=== PATIENT | female | born 1985 | race American Indian/Alaskan Native ===

== ENCOUNTER 2020-12-15 22:06 | Emergency (ER) | payer MEDICAID ==
[2020-12-15] MEDS ORDERED: oxyCODONE /ACETAMINOPHEN 5-325MG TAB PO ONE (23:36)
[2020-12-15] MEDS ORDERED: AMOXICILLIN/K CLAV 875/125MG TAB PO ONE (23:36)
[2020-12-15] MEDS ORDERED: ONDANSETRON 4 MG ODT TAB PO ONE (23:36)
[2020-12-15] MEDS ORDERED: IBUPROFEN 600 MG TAB PO ONE (23:36)
--- NOTE | 2020-12-16 00:41 | Emergency Department Report ---
ED General Adult HPI - General Chief complaint: Headache Stated complaint: HEADACHE/SWOLLEN FACE Source: patient Mode of arrival: Ambulatory Limitations: No Limitations - History of Present Illness Initial comments: Patient is a 35-year-old -[place] female with no past medical history presents to the ED with complaint of acute onset persistent severe bilateral mandibular premolar molar toothache with swollen gums for the last 1 week, worse in the last 2 days. Patient states that she has not been able to eat anything because of severe pain in her gums and jaw. Patient states that she has not seen any dentist for her dental pain. Patient states that she has been taking gvli-efm-[id number] medications for pain with no relief. Patient denies dizziness, syncope, chest pain, shortness of breath, sore throat, nasal and sinus congestion, change in vision, cough, abdominal pain, nausea and vomiting or diarrhea. MD Complaint: Dental pain; swollen gums -: Sudden, week(s) (1) Location: mouth Radiation: non-radiation Severity scale (0 -10): 10 Quality: aching, sharp Consistency: constant Improves with: none Worsens with: eating Associated Symptoms: denies other symptoms. denies: confusion, chest pain, cough, diaphoresis, fever/chills, headaches, loss of appetite, malaise, nausea/vomiting, rash, shortness of breath, syncope Treatments Prior to Arrival: none - Related Data Previous Rx's Medication Instructions Recorded Last Taken Type Acetaminophen/Codeine [Tylenol 1 tab PO Q6H PRN #10 tab 12/16/20 Unknown Rx /Codeine # 3 tab] Clindamycin [Clindamycin CAP] 300 mg PO Q8HR #60 capsule 12/16/20 Unknown Rx Ibuprofen [Motrin] 800 mg PO Q8HR PRN #30 tablet 12/16/20 Unknown Rx Allergies Allergy/AdvReac Type Severity Reaction Status Date / Time aspirin Allergy Hives Verified 12/15/20 23:23 ED Review of Systems ROS: Stated complaint: HEADACHE/SWOLLEN FACE Other details as noted in HPI Constitutional: denies: chills, fever Eyes: denies: eye pain, eye discharge, vision change ENT: dental pain, other (Swollen painful bilateral mandibular gingiva). denies: ear pain, throat pain Respiratory: denies: cough, shortness of breath, wheezing Cardiovascular: denies: chest pain, palpitations Endocrine: no symptoms reported Gastrointestinal: denies: abdominal pain, nausea, vomiting ( ), diarrhea Genitourinary: denies: urgency, dysuria, discharge Musculoskeletal: denies: back pain, joint swelling, arthralgia Skin: denies: rash, lesions Neurological: denies: headache, weakness, paresthesias Psychiatric: denies: anxiety, depression Hematological/Lymphatic: denies: easy bleeding, easy bruising ED Past Medical Hx - Past Medical History Previous Medical History?: No - Surgical History Past Surgical History?: Yes Additional Surgical History: Hernia Repair, Cryotherapy - Social History Smoking Status: Never Smoker - Medications Home Medications: Home Medications Medication Instructions Recorded Confirmed Last Taken Type Acetaminophen/Codeine [Tylenol 1 tab PO Q6H PRN #10 tab 12/16/20 Unknown Rx /Codeine # 3 tab] Clindamycin [Clindamycin CAP] 300 mg PO Q8HR #60 capsule 12/16/20 Unknown Rx Ibuprofen [Motrin] 800 mg PO Q8HR PRN #30 tablet 12/16/20 Unknown Rx ED Physical Exam - General Limitations: No Limitations General appearance: alert, in no apparent distress - Head Head exam: Present: atraumatic, normocephalic, normal inspection - Eye Eye exam: Present: normal appearance, PERRL, EOMI Pupils: Present: normal accommodation - ENT ENT exam: Present: mucous membranes moist, TM's normal bilaterally, normal external ear exam, other (Palpable severe tenderness of bilateral premolar and molar teeth; swollen tender bilateral mandibular gingiva) - Neck Neck exam: Present: normal inspection, full ROM, lymphadenopathy - Respiratory Respiratory exam: Present: normal lung sounds bilaterally. Absent: respiratory distress, wheezes, rhonchi, chest wall tenderness, decreased breath sounds, prolonged expiratory - Cardiovascular Cardiovascular Exam: Present: normal rhythm, tachycardia, normal heart sounds. Absent: systolic murmur, diastolic murmur, rubs, gallop - GI/Abdominal GI/Abdominal exam: Present: soft, normal bowel sounds. Absent: tenderness, guarding, rebound, hyperactive bowel sounds, hypoactive bowel sounds, organomegaly - Extremities Exam Extremities exam: Present: normal inspection, full ROM, normal capillary refill - Back Exam Back exam: Present: normal inspection, full ROM. Absent: tenderness, CVA tenderness (R), CVA tenderness (L), muscle spasm, paraspinal tenderness, vertebral tenderness - Neurological Exam Neurological exam: Present: alert, oriented X3, CN II-XII intact, normal gait, reflexes normal - Psychiatric Psychiatric exam: Present: normal affect, normal mood - Skin Skin exam: Present: warm, dry, intact, normal color. Absent: rash ED Course Vital Signs 12/15/20 12/16/20 12/16/20 23:23 00:24 01:05 Temperature 99.8 F H 98.9 F Pulse Rate 110 H 96 H Respiratory 18 20 18 Rate Blood Pressure 138/75 Blood Pressure 132/76 [Left] O2 Sat by Pulse 97 98 Oximetry 12/16/20 02:03 Temperature Pulse Rate Respiratory 20 Rate Blood Pressure Blood Pressure [Left] O2 Sat by Pulse 99 Oximetry ED Medical Decision Making - Medical Decision Making This is a 35-year-old -[place] female with no past medical history presents to the ED with complaint of acute onset persistent severe bilateral mandibular premolar molar toothache with swollen gums for the last 1 week, worse in the last 2 days. Patient states that she has not been able to eat anything because of severe pain in her gums and jaw. Patient states that she has not seen any dentist for her dental pain. Patient states that she has been taking qvio-rkj-lctterc medications for pain with no relief. In the ED, patient is alert and oriented x3 and is not in distress but tachycardic and anxious in triage, and appears to be in significant pain. Patient was treated for pain in the ED and also given initial oral antibiotics in the ED. On reevaluation, patient's pain is well controlled medications and tachycardia also resolved. Patient was discharged home on pain medication and antibiotics and was advised to follow-up with the dentist in 7 to 10 days for reevaluation or return to the ED immediately if symptoms get worse. - Differential Diagnosis gingivitis; dental abscess; dental caries; lymphadenopathy Critical care attestation.: If time is entered above; I have spent that time in minutes in the direct care of this critically ill patient, excluding procedure time. ED Disposition Clinical Impression: Dental abscess, Dental caries, Acute gingival disease Disposition: TO HOME OR SELFCARE Is pt being admited?: No Does the pt Need Aspirin: No Condition: Stable Instructions: Dental Abscess, [id number], Trench Mouth Additional Instructions: Take medications with food, drink plenty of fluids and follow-up with your primary care physician in 7 to 10 days for reevaluation. Return to the ED immediately if symptoms get worse. Prescriptions: Clindamycin [Clindamycin CAP] 300 mg PO Q8HR #60 capsule Ibuprofen [Motrin] 800 mg PO Q8HR PRN #30 tablet PRN Reason: Pain , Severe (7-10) Acetaminophen/Codeine [Tylenol /Codeine # 3 tab] 1 tab PO Q6H PRN #10 tab PRN Reason: Pain , Severe (7-10) Referrals: [facility] [Outside] - 3-5 Days Time of Disposition: 00:43 Print Language: KOREAN
[2020-12-16 02:08] VITALS: BP 132/76
== END 2020-12-16 01:05 | disposition home or self-care (01) ==
LOC: ED 22:06
DX: K04.7 Periapical abscess without sinus (principal); K02.9 Dental caries, unspecified; K06.9 Disorder of gingiva and edentulous alveolar ridge, unspecified; Z98.890 Other specified postprocedural states; Z79.899 Other long term (current) drug therapy; Z88.6 Allergy status to analgesic agent
CPT/HCPCS: 99282; Q0162